=== PATIENT | female | born 1945 | race Caucasian/White ===

== ENCOUNTER 2017-08-03 11:36 | Day surgery (SDC) | payer OTHER ==
[~2017-08-03] VITALS: Ht 165.1 cm; Wt 150.0 kg
[2017-08-03] MEDS ORDERED: LEVOTHYROXINE125 MCG (11:43)
== END 2017-08-04 17:00 | disposition home or self-care (01) ==
LOC: ER 11:36 → O/R 15:11 → SEC-K 15:11 → CIR.AMB 08-04 14:00 → SEC-K 08-04 15:47 → O/R 08-04 15:47 → CIR.AMB 08-04 17:00 → O/R 08-07 20:28 → SURH 08-07 20:28
DX: S52.572A Other intraarticular fracture of lower end of left radius, initial encounter for closed fracture (principal)

== ENCOUNTER 2017-08-29 14:33 | Outpatient (CLI) | payer OTHER | END 2017-08-29 14:38 | disposition home or self-care (01) | LOC: RAD 14:33 | DX: S52.532D Colles' fracture of left radius, subsequent encounter for closed fracture with routine healing (principal) ==

== ENCOUNTER → 2017-08-29 | Outpatient (CLI) | payer OTHER ==
[~2017-08-29] MED LIST: LEVOTHYROXINE125 MCG
== END | disposition home or self-care (01) ==
LOC: NUCLEAR 15:23
DX: M81.0 Age-related osteoporosis without current pathological fracture (principal)

== ENCOUNTER → 2017-09-20 10:00 | Outpatient (CLI) | payer OTHER | END | disposition home or self-care (01) | LOC: RAD 10:00 | DX: S52.532D Colles' fracture of left radius, subsequent encounter for closed fracture with routine healing (principal) ==

== ENCOUNTER 2017-11-17 11:43 | Outpatient (CLI) | payer OTHER | END 2017-11-17 15:00 | disposition home or self-care (01) | LOC: RAD 11:43 | DX: S52.532D Colles' fracture of left radius, subsequent encounter for closed fracture with routine healing (principal) ==

== ENCOUNTER 2018-08-02 13:38 | Emergency (ER) | payer OTHER ==
[~2018-08-02] VITALS: Ht 165.1 cm; Wt 68.0 kg
[2018-08-02] MEDS ORDERED: IBUPROFEN800 MG PO (17:22)
== END 2018-08-02 18:13 | disposition home or self-care (01) ==
LOC: ER 13:38
DX: M23.206 Derangement of unspecified meniscus due to old tear or injury, right knee (principal); M25.561 Pain in right knee

== ENCOUNTER 2019-05-10 15:11 | Outpatient (CLI) | payer OTHER ==
[~2019-05-10 15:11] MED LIST changes: +IBUPROFEN800 MG PO
== END 2019-05-10 15:17 | disposition home or self-care (01) ==
LOC: MAMO-SONO 15:11
DX: Z12.31 Encounter for screening mammogram for malignant neoplasm of breast (principal); Z87.898 Personal history of other specified conditions